=== PATIENT | female | born 1995 | race Two or more races ===

== ENCOUNTER 2018-05-16 12:12 | Emergency (ER) | payer OTHER ==
[2018-05-16 12:22] VITALS: BP 112/59; PULSE 81; TEMP 98.2; BMI 23.3
--- NOTE | 2018-05-16 12:28 | PDOC ---
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 Patient reported irrigated eye immediately and Denies eye irritation symptoms. 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 Patient denies blurry vision, change in vision or eye pain. Timing/Duration: 1-3 hours Past History - Past Medical History Allergies/Adverse Reactions: Allergies Allergy/AdvReac Type Severity Reaction Status Date / Time No Known Allergies Allergy Verified 05/16/18 12:21 Home Medications: Ambulatory Orders Ofloxacin 0.3% Ophth Soln [Ocuflox -] 2 drop OD Q4H 5 Days #1 bottle 05/16/18 COPD: No - Suicide/Smoking/Psychosocial Hx Smoking History: Never smoked Review of Systems - Review of Systems Able to Perform ROS?: Yes Is the patient limited Urdu proficient: No Constitutional: No: Weakness HEENTM: Yes: Symptoms Reported, See HPI, Eye Pain (left eye). No: Blurred Vision, Tearing, Recent change in vision, Double Vision, Cataracts, Ear Pain, Ocular Prothesis, Ear Discharge, Nose Pain, Nose Congestion, Tinnitus, Nose Bleeding, Hearing Loss, Throat Pain, Throat Swelling, Mouth Pain, Dental Problems, Difficulty Swallowing, Mouth Swelling, Other Respiratory: No: Symptoms reported Cardiac (ROS): No: Symptoms Reported ABD/GI: No: Symptoms Reported All Other Systems: Reviewed and Negative *Physical Exam - Vital Signs Last Vital Signs Temp Pulse Resp BP Pulse Ox 98.2 F 81 18 112/59 L 99 05/16/18 12:18 05/16/18 12:18 05/16/18 12:18 05/16/18 12:18 05/16/18 12:18 - Physical Exam General Appearance: Yes: Nourished, Appropriately Dressed. No: Apparent Distress HEENT: positive: EOMI, UMESH, Normal ENT Inspection. negative: Pale Conjunctivae , Scleral Icterus (L) (20/20 visual acuity in b/l eyes individually and both together ) Neck: positive: Supple Respiratory/Chest: positive: Lungs Clear, Normal Breath Sounds. negative: Respiratory Distress, Accessory Muscle Use Cardiovascular: positive: Regular Rhythm, Regular Rate Musculoskeletal: positive: Normal Inspection Extremity: positive: Normal Inspection Integumentary: positive: Normal Color Neurologic: positive: Fully Oriented, Normal Response Medical Decision Making - Medical Decision Making 05/16/18 12:53 Patient presented for evaluation status post splatter of body fluid in the left eye. Patient irrigated it immediately and eye irrigation center line clinical exam unremarkable with no conjunctiva erythema or foreign body in b/l conjunctiva.Patient is stable for discharge on a ofloxacin eye drops with ophthalmology follow-up *DC/Admit/Observation/Transfer Diagnosis at time of Disposition: Employee exposure to body fluids Conjunctivitis Qualifiers: Conjunctivitis type: acute Acute conjunctivitis type: unspecified Laterality: left Qualified Code(s): H10.32 - Unspecified acute conjunctivitis, left eye - Discharge Dispostion Disposition: HOME Condition at time of disposition: Stable Decision to Admit order: No - Prescriptions Prescriptions: Ofloxacin 0.3% Oph Soln [Ocuflox -] 2 drop OD Q4H 5 Days #1 bottle - Referrals - Patient Instructions Printed Discharge Instructions: How to Handle Body Fluid Exposure -- Healthcare Worker Additional Instructions: use prescribed eye drops as prescribed. Follow-up with ophthalmology as needed - Post Discharge Activity
== END 2018-05-16 13:04 | disposition home or self-care (01) ==
LOC: JERFT 12:12
DX: Z77.018 Contact with and (suspected) exposure to other hazardous metals (principal); X58.XXXA Exposure to other specified factors, initial encounter; Y93.89 Activity, other specified; Y92.238 Other place in hospital as the place of occurrence of the external cause; Y99.0 Civilian activity done for income or pay; H10.32 Unspecified acute conjunctivitis, left eye
CPT/HCPCS: 99281-25